=== PATIENT | female | born 1965 | race African-American/Black ===

== ENCOUNTER 2018-05-04 19:54 | Emergency (ER) | payer MEDICAID ==
[~2018-05-04] VITALS: Ht 165.1 cm; Wt 59.0 kg
[~2018-05-04 19:54] MED LIST: LEVO500T2 MT
[2018-05-04] MEDS ORDERED: SODIUM CHLORIDE 0.9% 1,000 ML IV ONE (21:58)
[2018-05-04] MEDS ORDERED: LORAZEPAM 2MG/ML CPJ IV ONE (22:15)
[2018-05-05 00:01] LABS: EOSINOPHILS % 4.4 % (0.0-5.0); HEMATOCRIT. 45.3 % (36.0-48.0); HEMOGLOBIN. 14.7 g/dL (12.0-16.0); LYMPHOCYTES % 26.9 % (20.0-50.0); MEAN CORPUSCULAR HEMOGLOBIN 30.4 pg (28.0-32.0); MEAN CORPUSCULAR VOLUME 93.8 fL (81.0-99.0); MEAN PLATELET VOLUME 8.3 fl (7.4-10.4); MONOCYTES % 6.1 % (2.0-8.0); NEUTROPHILS % 61.6 % (40.0-76.0); PLATELET 250 x1000/uL (130-400); RED BLOOD CELL COUNT 4.83 mill/uL (4.2-5.4); RED CELL DISTRIBUTION WIDTH 14.1 % (11.6-14.6)
[2018-05-05 00:04] LABS: CHLORIDE 110 mEq/L (98-107)
[2018-05-05 00:37] LABS: ETHANOL BLOOD 323 mg/dL
[2018-05-05 04:28] VITALS: BP 124/75
[2018-05-05 05:01] LABS: *AMPHETAMINES SCREEN URINE NEGATIVE (NEGATIVE); *BARBITURATES SCREEN URINE NEGATIVE (NEGATIVE); *BENZODIAZEPINES SCREEN URINE NEGATIVE (NEGATIVE); *COCAINE SCREEN URINE NEGATIVE (NEGATIVE); METHADONE URINE SCREEN NEGATIVE (NEGATIVE); OPIATES URINE SCREEN NEGATIVE (NEGATIVE)
[2018-05-05 05:02] LABS: CANNABINOID URINE SCREEN PRESUMTIVE POSITIVE (NEGATIVE); PHENCYCLIDINE URINE SCREEN NEGATIVE (NEGATIVE)
== END 2018-05-05 04:32 | disposition home or self-care (01) ==
LOC: ER 19:54
DX: F10.229 Alcohol dependence with intoxication, unspecified (principal); Y90.8 Blood alcohol level of 240 mg/100 ml or more
CPT/HCPCS: 36415; 70450; 80053; 80305; 85025; 87186; 96360; 96361; 99284; J7030; J2060

== ENCOUNTER 2018-09-06 05:46 | Emergency (ER) | payer MEDICAID ==
[~2018-09-06] VITALS: Ht 154.9 cm; Wt 68.0 kg
[2018-09-06] MEDS ORDERED: IBUPROFEN 600MG TABLET PO ONE (07:15)
[2018-09-06] MEDS ORDERED: ACETAMINOPHEN WITH CODEINE 300/30MG TABLET PO ONE (08:30)
[2018-09-06] MEDS ORDERED: TETANUS, DIPHTHERIA, PERTUSSIS VAC/PF 0.5ML (>7YR OLD) IM ONE (09:00)
[2018-09-06 09:30] VITALS: BP 121/72
== END 2018-09-06 10:00 | disposition home or self-care (01) ==
LOC: ER 05:46
DX: S01.81XA Laceration without foreign body of other part of head, initial encounter (principal); F12.10 Cannabis abuse, uncomplicated; L93.2 Other local lupus erythematosus; Z98.890 Other specified postprocedural states; Z79.899 Other long term (current) drug therapy; Y08.89XA Assault by other specified means, initial encounter; Y93.89 Activity, other specified; Y92.89 Other specified places as the place of occurrence of the external cause; Y99.8 Other external cause status
CPT/HCPCS: 70450; 81025; 99284; A4217; Z7610

== ENCOUNTER 2018-12-25 15:27 | Emergency (ER) | payer MEDICAID ==
[~2018-12-25] VITALS: Ht 152.4 cm; Wt 62.0 kg
[2018-12-25 18:40] VITALS: BP 111/72
== END 2018-12-25 18:41 | disposition home or self-care (01) ==
LOC: ER 15:27
DX: J40 Bronchitis, not specified as acute or chronic (principal); J30.9 Allergic rhinitis, unspecified; Z95.2 Presence of prosthetic heart valve
CPT/HCPCS: 81025; 99283

== ENCOUNTER 2019-06-05 06:22 | Emergency (ER) | payer MEDICAID ==
[~2019-06-05] VITALS: Ht 165.1 cm; Wt 64.0 kg
[2019-06-05] MEDS ORDERED: ONDANSETRON HCL 4MG/2ML INJ IV STA (06:41)
[2019-06-05] MEDS ORDERED: SODIUM CHLORIDE 0.9% 1,000 ML IV ONE (06:41)
[2019-06-05] MEDS ORDERED: FAMOTIDINE 20MG/2ML VIAL IV STA (06:41)
[2019-06-05] MEDS ORDERED: MORPHINE SULFATE 4 MG/ML CPJ (NOT FOR IM USE) IV STA (06:41)
[2019-06-05 07:07] LABS: BASOPHILS % 1.2 % (0.0-2.0); EOSINOPHILS % 0.9 % (0.0-5.0); HEMATOCRIT. 43.5 % (36.0-48.0); HEMOGLOBIN. 14.7 g/dL (12.0-16.0); LYMPHOCYTES % 12.4 % (20.0-50.0); MEAN CORPUSCULAR HEMOGLOBIN 30.1 pg (28.0-32.0); MEAN CORPUSCULAR VOLUME 89.2 fL (81.0-99.0); MEAN PLATELET VOLUME 8.2 fl (7.4-10.4); MONOCYTES % 4.3 % (2.0-8.0); NEUTROPHILS % 81.2 % (40.0-76.0); PLATELET 229 x1000/uL (130-400); RED BLOOD CELL COUNT 4.88 mill/uL (4.2-5.4); RED CELL DISTRIBUTION WIDTH 13.3 % (11.6-14.6)
[2019-06-05 07:09] LABS: CHLORIDE 106 mEq/L (98-107)
[2019-06-05 08:41] LABS: INR 0.9; PROTHROMBIN TIME 10.1 sec (9.6-11.0)
[2019-06-05] MEDS ORDERED: KETOROLAC 30MG/ML VIAL IV ONE (08:45)
[2019-06-05 09:15] VITALS: BP 130/80
[2019-06-05 10:31] LABS: CLARITY URINE CLEAR (CLEAR); COLOR URINE YELLOW (YELLOW); KETONES URINE 3+ (NEGATIVE); LEUKOCYTE ESTERASE URINE NEGATIVE (NEGATIVE); NITRITE URINE NEGATIVE (NEGATIVE); OCCULT BLOOD URINE NEGATIVE (NEGATIVE); PROTEIN URINE TRACE (NEGATIVE); SPECIFIC GRAVITY URINE 1.024 (1.005-1.030); UROBILINOGEN URINE 0.2 E.U./dL (0.2-1.0)
== END 2019-06-05 11:46 | disposition home or self-care (01) ==
LOC: ER 06:22
DX: K52.9 Noninfective gastroenteritis and colitis, unspecified (principal); M32.9 Systemic lupus erythematosus, unspecified
CPT/HCPCS: 36415; 80053; 81003; 83690; 85025; 85610; 96361; 96374; 96375; 99284; J1885; J2270; J2405; J3490; J7030

== ENCOUNTER 2019-06-07 08:47 | Emergency (ER) | payer MEDICAID ==
[~2019-06-07] VITALS: Ht 160 cm; Wt 61.0 kg
[2019-06-07] MEDS ORDERED: MORPHINE SULFATE 4 MG/ML CPJ (NOT FOR IM USE) IV STA (09:45)
[2019-06-07] MEDS ORDERED: FAMOTIDINE 20MG/2ML VIAL IV STA (09:45)
[2019-06-07] MEDS ORDERED: SODIUM CHLORIDE 0.9% 1,000 ML IV ONE ×2 (09:45→11:51)
[2019-06-07] MEDS ORDERED: ONDANSETRON HCL 4MG/2ML INJ IV STA (09:45)
[2019-06-07 10:08] LABS: BASOPHILS % 0.8 % (0.0-2.0); EOSINOPHILS % 1.6 % (0.0-5.0); HEMATOCRIT. 40.5 % (36.0-48.0); HEMOGLOBIN. 13.8 g/dL (12.0-16.0); LYMPHOCYTES % 12.4 % (20.0-50.0); MEAN CORPUSCULAR HEMOGLOBIN 30.2 pg (28.0-32.0); MEAN PLATELET VOLUME 8.3 fl (7.4-10.4); NEUTROPHILS % 78.2 % (40.0-76.0); PLATELET 246 x1000/uL (130-400); RED BLOOD CELL COUNT 4.55 mill/uL (4.2-5.4)
[2019-06-07 10:15] LABS: CHLORIDE 103 mEq/L (98-107)
[2019-06-07 10:19] LABS: ETHANOL BLOOD < 10 mg/dL
[2019-06-07 10:26] LABS: INR 0.9
[2019-06-07] MEDS ORDERED: FENTANYL CITRATE/PF 50MCG/ML 2ML VIAL IV ONE (10:30)
[2019-06-07] MEDS ORDERED: FAMOTIDINE 20MG/2ML VIAL IV NR (14:30)
[2019-06-07 15:00] VITALS: BP 116/60
[2019-06-07 15:00] LABS: CLARITY URINE CLEAR (CLEAR); COLOR URINE YELLOW (YELLOW); KETONES URINE 2+ (NEGATIVE); LEUKOCYTE ESTERASE URINE NEGATIVE (NEGATIVE); NITRITE URINE NEGATIVE (NEGATIVE); OCCULT BLOOD URINE NEGATIVE (NEGATIVE); PH URINE 5.5 (4.5-8.0); PROTEIN URINE NEGATIVE (NEGATIVE); SPECIFIC GRAVITY URINE 1.008 (1.005-1.030); UROBILINOGEN URINE 0.2 E.U./dL (0.2-1.0)
[2019-06-07 15:19] LABS: *AMPHETAMINES SCREEN URINE NEGATIVE (NEGATIVE); *BARBITURATES SCREEN URINE NEGATIVE (NEGATIVE)
[2019-06-07 15:20] LABS: *BENZODIAZEPINES SCREEN URINE NEGATIVE (NEGATIVE); *COCAINE SCREEN URINE NEGATIVE (NEGATIVE); CANNABINOID URINE SCREEN PRESUMTIVE POSITIVE (NEGATIVE); METHADONE URINE SCREEN NEGATIVE (NEGATIVE); OPIATES URINE SCREEN NEGATIVE (NEGATIVE); PHENCYCLIDINE URINE SCREEN NEGATIVE (NEGATIVE)
[2019-06-07] MEDS ORDERED: POTASSIUM CHLORIDE 20MEQ TABLET SR PO ONE (15:30)
== END 2019-06-07 16:32 | disposition home or self-care (01) ==
LOC: ER 08:47
DX: R10.9 Unspecified abdominal pain (principal); R11.2 Nausea with vomiting, unspecified; R19.7 Diarrhea, unspecified; E86.0 Dehydration; K57.92 Diverticulitis of intestine, part unspecified, without perforation or abscess without bleeding
CPT/HCPCS: 36415; 74176; 80053; 80305; 80320; 81003; 83690; 85025; 85610; 96361; 96374; 96375; 99284; J2405; J3010; J7030; G0480

== ENCOUNTER 2020-04-22 21:17 | Emergency (ER) | payer MEDICAID ==
[~2020-04-22] VITALS: Ht 154.9 cm; Wt 69.0 kg
[2020-04-22 22:30] VITALS: BP 137/89
== END 2020-04-22 23:00 | disposition left against medical advice (07) ==
LOC: ER 21:17
DX: R42 Dizziness and giddiness (principal)
CPT/HCPCS: 93005; 99283

== ENCOUNTER 2021-02-02 13:43 | Emergency (ER) | payer MEDICAID ==
[~2021-02-02] VITALS: Ht 154.9 cm; Wt 59.0 kg
[~2021-02-02 13:43] MED LIST changes: +mirtazapine
[2021-02-02] MEDS ORDERED: METHOCARBAMOL 500MG TABLET PO ONE (14:30)
[2021-02-02] MEDS ORDERED: HYDROCODONE/ACETAMINOPHEN 5/325MG TABLET PO ONE (14:30)
[2021-02-02 15:44] VITALS: BP 114/73
[2021-02-02 16:19] LABS: CLARITY URINE CLOUDY (CLEAR); COLOR URINE YELLOW (YELLOW); KETONES URINE NEGATIVE (NEGATIVE); LEUKOCYTE ESTERASE URINE 1+ (NEGATIVE); NITRITE URINE NEGATIVE (NEGATIVE); OCCULT BLOOD URINE NEGATIVE (NEGATIVE); PH URINE 6.5 (4.5-8.0); PROTEIN URINE NEGATIVE (NEGATIVE); SPECIFIC GRAVITY URINE 1.022 (1.005-1.030)
[2021-02-02] MEDS ORDERED: CEPH250C2 MT (16:29)
[2021-02-02] MEDS ORDERED: NAPR375T5 MT (16:48)
[2021-02-02] MEDS ORDERED: METH-773 MT (16:48)
== END 2021-02-02 17:06 | disposition home or self-care (01) ==
LOC: ER 13:43
DX: N39.0 Urinary tract infection, site not specified (principal); G89.29 Other chronic pain; M54.50 Low back pain, unspecified; M25.552 Pain in left hip; F32.A Depression, unspecified; I34.1 Nonrheumatic mitral (valve) prolapse
CPT/HCPCS: 73502; 81003; 99284

== ENCOUNTER 2021-04-14 22:42 | Emergency (ER) | payer MEDICAID ==
[~2021-04-14] VITALS: Ht 167.6 cm; Wt 56.0 kg
[~2021-04-14 22:42] MED LIST changes: +CEPH250C2 MT; +METH-773 MT; +NAPR375T5 MT
[2021-04-14 23:00] VITALS: BP 122/74
== END 2021-04-15 01:12 | disposition home or self-care (01) ==
LOC: ER 22:42
DX: F10.129 Alcohol abuse with intoxication, unspecified (principal); F43.21 Adjustment disorder with depressed mood; F32.A Depression, unspecified; F12.10 Cannabis abuse, uncomplicated; Z20.822 Contact with and (suspected) exposure to COVID-19; Y90.9 Presence of alcohol in blood, level not specified
CPT/HCPCS: 87426; 93005; 99283

== ENCOUNTER 2021-12-22 13:44 | Emergency (ER) | payer MEDICAID ==
[~2021-12-22] VITALS: Ht 167.6 cm; Wt 60.0 kg
[2021-12-22] MEDS ORDERED: HYDROCODONE/ACETAMINOPHEN 5/325MG TABLET PO STA (16:13)
[2021-12-22] MEDS ORDERED: ACYCLOVIR 400 MG TABLET PO ONE (16:15)
[2021-12-22 16:57] LABS: BASOPHILS % 1.3 % (0.0-2.0); EOSINOPHILS % 3.4 % (0.0-5.0); HEMATOCRIT. 41.9 % (36.0-48.0); HEMOGLOBIN. 13.6 g/dL (12.0-16.0); LYMPHOCYTES % 23.7 % (20.0-50.0); MEAN CORPUSCULAR HEMOGLOBIN 29.6 pg (28.0-32.0); MEAN CORPUSCULAR VOLUME 90.8 fL (81.0-99.0); MEAN PLATELET VOLUME 8.8 fl (7.4-10.4); MONOCYTES % 12.9 % (2.0-8.0); NEUTROPHILS % 58.7 % (40.0-76.0); PLATELET 181 x1000/uL (130-400); RED BLOOD CELL COUNT 4.61 mill/uL (4.2-5.4); RED CELL DISTRIBUTION WIDTH 14.4 % (11.6-14.6)
[2021-12-22 16:58] LABS: CHLORIDE 104 mEq/L (98-107)
[2021-12-22 17:15] VITALS: BP 131/74
[2021-12-22] MEDS ORDERED: ACYC200C31 MT (17:20)
[2021-12-22] MEDS ORDERED: IBUP-2029 MT (17:20)
[2021-12-22] MEDS ORDERED: HYDR-4001 MT (17:20)
== END 2021-12-22 17:50 | disposition home or self-care (01) ==
LOC: ER 14:55
DX: B01.9 Varicella without complication (principal); R07.89 Other chest pain; Z98.890 Other specified postprocedural states
CPT/HCPCS: 36415; 71045; 80053; 85025; 93005; 99285

== ENCOUNTER 2022-01-13 07:52 | Emergency (ER) | payer MEDICAID ==
[~2022-01-13] VITALS: Ht 154.9 cm; Wt 65.0 kg
[~2022-01-13 07:52] MED LIST changes: +ACYC200C31 MT; +HYDR-4001 MT; +IBUP-2029 MT
[2022-01-13] MEDS ORDERED: HYDROCODONE/ACETAMINOPHEN 5/325MG TABLET PO STA (08:57)
[2022-01-13 09:20] VITALS: BP 125/74
[2022-01-13 10:07] LABS: BASOPHILS % 1.8 % (0.0-2.0); EOSINOPHILS % 4.8 % (0.0-5.0); HEMATOCRIT. 38.6 % (36.0-48.0); HEMOGLOBIN. 12.6 g/dL (12.0-16.0); LYMPHOCYTES % 25.3 % (20.0-50.0); MEAN CORPUSCULAR HEMOGLOBIN 29.8 pg (28.0-32.0); MEAN CORPUSCULAR VOLUME 91.1 fL (81.0-99.0); MEAN PLATELET VOLUME 8.1 fl (7.4-10.4); MONOCYTES % 11.8 % (2.0-8.0); NEUTROPHILS % 56.3 % (40.0-76.0); PLATELET 232 x1000/uL (130-400); RED BLOOD CELL COUNT 4.24 mill/uL (4.2-5.4); RED CELL DISTRIBUTION WIDTH 13.9 % (11.6-14.6)
[2022-01-13 10:13] LABS: CHLORIDE 102 mEq/L (98-107)
[2022-01-13] MEDS ORDERED: HYDR-4001 MT (10:44)
[2022-01-13] MEDS ORDERED: GABA300C MT (10:44)
== END 2022-01-13 11:00 | disposition home or self-care (01) ==
LOC: ER 08:15
DX: R07.89 Other chest pain (principal); B01.9 Varicella without complication; F32.A Depression, unspecified; I34.1 Nonrheumatic mitral (valve) prolapse
CPT/HCPCS: 36415; 71045; 80053; 84484; 85025; 93005; 99285

== ENCOUNTER 2022-04-09 11:30 | Emergency (ER) | payer MEDICAID ==
[~2022-04-09] VITALS: Ht 162.6 cm; Wt 54.0 kg
[~2022-04-09 11:30] MED LIST changes: +GABA300C MT
[2022-04-09 11:35] VITALS: BP 138/80
== END 2022-04-09 16:25 | disposition left against medical advice (07) ==
LOC: ER 11:30
DX: Z53.21 Procedure and treatment not carried out due to patient leaving prior to being seen by health care provider (principal)
CPT/HCPCS: 93005; 99281

== ENCOUNTER 2022-11-18 15:25 | Emergency (ER) | payer BC, MEDICAID ==
[~2022-11-18] VITALS: Ht 154.9 cm; Wt 59.0 kg
[2022-11-18 15:43] VITALS: TEMP 99; O2SAT 100
[2022-11-18 16:13] LABS: BASOPHILS % 1.3 % (0.0-2.0); EOSINOPHILS % 2.9 % (0.0-5.0); HEMATOCRIT. 41.4 % (36.0-48.0); HEMOGLOBIN. 13.7 g/dL (12.0-16.0); LYMPHOCYTES % 26.9 % (20.0-50.0); MEAN CORPUSCULAR HEMOGLOBIN 29.8 pg (28.0-32.0); MEAN CORPUSCULAR HGB CONC 33.1 g/dL (31.0-37.0); MEAN CORPUSCULAR VOLUME 90.2 fL (81.0-99.0); MONOCYTES % 8.2 % (2.0-8.0); NEUTROPHILS % 60.7 % (40.0-76.0); PLATELET 269 x1000/uL (130-400); RED BLOOD CELL COUNT 4.59 mill/uL (4.2-5.4); RED CELL DISTRIBUTION WIDTH 13.8 % (11.6-14.6)
[2022-11-18 16:21] LABS: CHLORIDE 104 mEq/L (98-107); INDEX HEMOLYSI 1 (1-3); INDEX ICTERIC 1 (1-4); INDEX LIPEMIC 1 (1-3); POTASSIUM 3.4 mEq/L (3.5-5.1); SODIUM 137 mEq/L (136-145)
[2022-11-18 16:29] LABS: ALANINE AMINOTRANSFERASE 16 IU/L (13-61); ALBUMIN 3.9 g/dL (3.4-5.0); ASPARTATE AMINOTRANSFERASE 8 IU/L (15-37); BILIRUBIN TOTAL 0.6 mg/dL (0.1-1.0); CALCIUM 9.1 mg/dL (8.5-10.1); CARBON DIOXIDE 28 mEq/L (21-32); CREATININE 0.7 mg/dL (0.6-1.3); GLUCOSE 93 mg/dL (70-105); PROTEIN TOTAL 7.7 g/dL (6.0-8.3); UREA NITROGEN BLOOD 19 mg/dL (7-21)
[2022-11-18 16:40] LABS: CLARITY URINE CLEAR (CLEAR); COLOR URINE YELLOW (YELLOW); GLUCOSE URINE NEGATIVE (NEGATIVE); KETONES URINE NEGATIVE (NEGATIVE); LEUKOCYTE ESTERASE URINE NEGATIVE (NEGATIVE); NITRITE URINE NEGATIVE (NEGATIVE); OCCULT BLOOD URINE NEGATIVE (NEGATIVE); PH URINE 5.5 (4.5-8.0); PROTEIN URINE TRACE (NEGATIVE); SPECIFIC GRAVITY URINE 1.029 (1.005-1.030); UROBILINOGEN URINE 0.2 E.U./dL (0.2-1.0)
[2022-11-18 16:45] LABS: BACTERIA URINE NONE SEEN; RBC URINE NONE SEEN /hpf (0-2); YEAST URINE NONE SEEN
[2022-11-18 17:20] LABS: SQUAMOUS EPITHELIAL CELL URINE FEW /lpf (RARE/1+); WBC URINE 0-2 /hpf (0-2)
[2022-11-18] MEDS ORDERED: HYDROCODONE/ACETAMINOPHEN 10/325MG TABLET PO ONE (22:30)
[2022-11-18 22:54] LABS: NT PRO B-TYPE NATRIURETIC PEP 44 pg/mL (5-125)
[2022-11-18 23:03] LABS: TROPONIN I HIGH SENSITIVITY < 4 ng/L (<54)
[2022-11-19] MEDS ORDERED: AMOXICILLIN/POTASSIUM CLAVULANATE 875/125MG TAB PO ONE (02:30)
[2022-11-19] MEDS ORDERED: MECLIZINE 25MG TABLET PO ONE (02:30)
[2022-11-19] MEDS ORDERED: IBUPROFEN 800MG TABLET PO ONE (03:00)
[2022-11-19] MEDS ORDERED: MECL-159 MT (03:18)
[2022-11-19] MEDS ORDERED: AMOX1TAB16 MT (03:18)
[2022-11-19] MEDS ORDERED: IBUP-2030 MT (03:18)
[2022-11-19 04:15] VITALS: BP 114/78; PULSE 69; RESP 16
[2022-11-19] MEDS ORDERED: HYDROCODONE/ACETAMINOPHEN 10/325MG TABLET PO NR (04:15)
[2022-11-19] MEDS ORDERED: AMOXICILLIN/POTASSIUM CLAVULANATE 875/125MG TAB PO NR (04:15)
== END 2022-11-19 04:21 | disposition home or self-care (01) ==
LOC: ER 16:39
DX: R51.9 Headache, unspecified (principal); R42 Dizziness and giddiness; J32.9 Chronic sinusitis, unspecified; F32.9 Major depressive disorder, single episode, unspecified; I10 Essential (primary) hypertension; Z79.899 Other long term (current) drug therapy
CPT/HCPCS: 99285; 70450; 71045; 80053; 81003; 83880; 85025; 84484; 36415; 93005; J8597